=== PATIENT | male | born 1965 | race Caucasian/White ===

== ENCOUNTER → 2016-12-29 | Outpatient (CLI) | payer BC ==
--- NOTE | 2016-12-29 15:52 | EKG ---
[address] [address] Measurements Intervals [place] Rate: 65 P: 47 DC: 163 QRS: 44 QRSD: 90 T: 17 QT: 387 QTc: 399 Interpretive Statements SINUS RHYTHM No previous ECG available for comparison Electronically Signed On 12-30-16 14:00:45 MST by Juan Matthews [email or web address]
[2016-12-29 16:22] LABS: BASOPHILS # (AUTO) 0.06 10*3/UL; BASOPHILS % (AUTO) 0.6 % (0-1); EOSINOPHILS % (AUTO) 1.1 % (0-8); HEMATOCRIT 48.8 % (42.0-52.0); HEMOGLOBIN 17.3 g/dL (14.0-18.0); IMM GRAN % (AUTO) 0.2 % (0-5); IMM GRAN# (AUTO) 0.02 10*3/UL; LYMPHOCYTES # (AUTO) 3.06 10*3/uL; LYMPHOCYTES % (AUTO) 30.6 % (10-50); MEAN CORPUSCULAR HEMOGLOBIN 30.6 PG (27-31); MEAN CORPUSCULAR HGB CONC 35.5 g/dL (33-37); MEAN PLATELET VOLUME 9.3 FL (7.4-12.2); MONOCYTES # (AUTO) 0.86 10*3/UL (0.3-0.8); MONOCYTES % (AUTO) 8.6 % (5-15); NEUTROPHILS # (AUTO) 5.88 10*3/UL; NEUTROPHILS % (AUTO) 58.9 % (50-80); RDW COEFFICIENT OF VARIATION 12.5 % (11.5-14.5); RED BLOOD COUNT 5.66 10^6/uL (4.70-6.10); WHITE BLOOD COUNT 9.99 10^3/uL (4.8-10.8)
[2016-12-29 16:25] LABS: PLATELET MORPHOLOGY COMMENT NORMAL MORPHOLOGY (NORM)
--- NOTE | 2016-12-29 16:30 | DI ---
PA /LATERAL CHEST X-RAY, 12/29/2016 3:41 PM : Clinical History: Smoker. Encounter for tobacco use cessation counseling. Previous Exam: None at this facility. There is no acute soft tissue or bony abnormality. Heart size is normal. Lungs are clear. Mediastinal structures are normal. There are no pulmonary nodules. Reading: Normal chest x-ray.
[2016-12-29 16:37] LABS: ASPARTATE AMINO TRANSFERASE 21 IU/L (21-57); BILIRUBIN,TOTAL 0.7 mg/dL (0.3-1.2); BLOOD UREA NITROGEN 14 mg/dL (7-22); CALCIUM 9.3 mg/dL (8.7-10.7); CHLORIDE 104 meq/L (98-112); EST GLOMERULAR FILTRATION > 60 (>60 ml/min/1.73m(2)); GLUCOSE 99 mg/dL (78-110); HDL CHOLESTEROL 37 mg/dL (40-150); POTASSIUM 4.5 meq/L (3.8-5.2); SODIUM 139 meq/L (135-145); TOTAL PROTEIN 8.1 g/dL (6.1-8.0); TRIGLYCERIDES 157 mg/dL (44-200)
== END ==
LOC: RAD 15:39
PROVIDERS: ATTEND Nurse Practitioner
DX: Z71.6 Tobacco abuse counseling (principal); I10 Essential (primary) hypertension
CPT/HCPCS: 36415; 71020; 80053; 80061; 85025; 93005; 93010